=== PATIENT | female | born 1970 | race Asian ===

== ENCOUNTER → 2020-07-02 | Day surgery (SDC) | payer OTHER ==
[~2020-07-02] MED LIST: CENTRUM SILVER1 EAC5 PO; LIDOCAINE HCL 2% LOCAL INJ 5 ML SDV VIAL INJ ONE; MIDAZOLAM HCL 2 MG/2 ML VIAL ONE; ONDANSETRON HCL INJ 2MG/ML 2ML 2 MG/ML VIAL ONE; PROPOFOL IV EMULSION 10 MG/ML 20 ML VIAL ONE
[2020-07-02 11:40] VITALS: BP 122/85
== END | disposition home or self-care (01) ==
LOC: OR 08:19
PROVIDERS: ATTEND Internal Medicine Gastroenterology
DX: Z12.11 Encounter for screening for malignant neoplasm of colon (principal); D12.3 Benign neoplasm of transverse colon; D12.4 Benign neoplasm of descending colon; D12.5 Benign neoplasm of sigmoid colon; K64.8 Other hemorrhoids; Z88.6 Allergy status to analgesic agent; Z80.0 Family history of malignant neoplasm of digestive organs
CPT/HCPCS: 45384; 93005; J2001; J2250; J2405; J2704; U0002